=== PATIENT | female | born 1990 | race Caucasian/White ===

== ENCOUNTER 2017-07-28 15:36 | Emergency (ER) | payer MEDICAID ==
[~2017-07-28] VITALS: Ht 162.6 cm; Wt 59.1 kg
[~2017-07-28 15:36] MED LIST: IBUPROFEN600 MG PO; PERCOCET 5-3251 TAB PO; PRENATAL COMPLE1 TAB PO
[2017-07-28 16:02] VITALS: Ht 162.6 cm; Wt 59.1 kg
[2017-07-28] MEDS ORDERED: PHENERGAN25 M1 PO (16:04)
[2017-07-28 19:34] LABS: APPEARANCE CLEAR (CLEAR); BILIRUBIN NEGATIVE (NEGATIVE); COLOR YELLOW (YELLOW); GLUCOSE NEGATIVE (NEGATIVE); KETONE NEGATIVE (NEGATIVE); NITRITE NEGATIVE (NEGATIVE); PROTEIN NEGATIVE (NEGATIVE); UROBILINOGEN NORMAL (NORMAL)
[2017-07-28 19:35] LABS: BASOPHILS 0.3 % (0-2); EOSINOPHILS 1.2 % (0-7); HEMATOCRIT 37.4 % (36.0-48.0); HEMOGLOBIN 13.2 g/dL (12-16); IMMATURE GRANULOCYTES 0.2 % (0-5); LYMPHOCYTES 35.3 % (15-50); MCH 32.4 pg (26.0-34.0); MCHC 35.3 g/dL (31.0-37.0); MCV 91.7 fL (80.0-100.0); MEAN PLATELET VOLUME 10.1 fL (7.4-10.4); MONOCYTES 5.4 % (2-11); NEUTROPHILS 57.6 % (40-80); PLATELET COUNT 237 10x3/uL (130-400); RBC 4.08 10x6/uL (4.00-5.40); RDW 12.1 % (11.5-14.5); WBC 9.3 10x3/uL (4.8-10.8)
[2017-07-28 19:57] LABS: ALBUMIN 3.6 g/dL (3.4-5.0); ALKALINE PHOSPHATASE 61 U/L (46-116); ALT (SGPT) 76 U/L (10-68); BILIRUBIN - TOTAL 0.28 mg/dL (0.2-1.3); CALC OSMOLALITY 266 mosm/kg (275-300); CARBON DIOXIDE 22.9 mmol/L (21.0-32.0); CHLORIDE - SERUM 101 mmol/L (98-107); CREATININE - SERUM 0.6 mg/dL (0.6-1.3); GLUCOSE 80 mg/dL (74-106); POTASSIUM - SERUM 3.4 mmol/L (3.5-5.1); PROTEIN - SERUM 7.1 g/dL (6.4-8.2); SODIUM 135 mmol/L (136-145); UREA NITROGEN 7 mg/dL (7-18); eGFR NON AFRICAN AMERICAN > 90 mL/min (90-120)
[2017-07-28 20:21] LABS: HCG - QUANTITATIVE (MATERNAL) 127010 mIU/mL
[2017-07-28] MEDS ORDERED: ZOFRAN8 MG PO (21:51)
[2017-07-28 22:04] VITALS: BP 115/77
== END 2017-07-28 22:04 | disposition home or self-care (01) ==
LOC: D.ER 15:36
PROVIDERS: Family Medicine
DX: O26.891 Other specified pregnancy related conditions, first trimester (principal); Z3A.10 10 weeks gestation of pregnancy; E86.0 Dehydration; R73.9 Hyperglycemia, unspecified

== ENCOUNTER 2018-02-15 17:27 | Inpatient (IN) | payer MEDICAID ==
[~2018-02-15] VITALS: Ht 162.6 cm; Wt 79.4 kg
[~2018-02-15 17:27] MED LIST changes: +PHENERGAN25 M1 PO; +ZOFRAN8 MG PO
[2018-02-15 18:31] VITALS: BP 112/71; Ht 162.6 cm; Wt 79.4 kg
[2018-02-15 19:14] LABS: HEMATOCRIT 35.1 % (36.0-48.0); HEMOGLOBIN 12.2 g/dL (12-16); MCH 32.4 pg (26.0-34.0); MCHC 34.8 g/dL (31.0-37.0); MCV 93.1 fL (80.0-100.0); MEAN PLATELET VOLUME 10.8 fL (7.4-10.4); RBC 3.77 10x6/uL (4.00-5.40); RDW 12.9 % (11.5-14.5); WBC 10.7 10x3/uL (4.8-10.8)
[2018-02-15 19:22] LABS: UDS - AMPHET NEGATIVE QUAL (NEGATIVE); UDS - BARB NEGATIVE QUAL (NEGATIVE); UDS - BENZO NEGATIVE QUAL (NEGATIVE); UDS - COCAINE NEGATIVE QUAL (NEGATIVE); UDS - OPIATE NEGATIVE QUAL (NEGATIVE); UDS - PCP NEGATIVE QUAL (NEGATIVE); UDS - THC NEGATIVE QUAL (NEGATIVE)
[2018-02-16 07:25] LABS: ALBUMIN 2.2 g/dL (3.4-5.0); ALKALINE PHOSPHATASE 141 U/L (46-116); ALT (SGPT) 62 U/L (10-68); BILIRUBIN - TOTAL 0.32 mg/dL (0.2-1.3); CALC OSMOLALITY 275 mosm/kg (275-300); CALCIUM 8.1 mg/dL (8.5-10.1); CARBON DIOXIDE 19.8 mmol/L (21.0-32.0); CHLORIDE - SERUM 104 mmol/L (98-107); CREATININE - SERUM 0.6 mg/dL (0.6-1.3); GLUCOSE 85 mg/dL (74-106); LDH 145 U/L (81-234); POTASSIUM - SERUM 3.9 mmol/L (3.5-5.1); PROTEIN - SERUM 5.4 g/dL (6.4-8.2); SODIUM 139 mmol/L (136-145); UREA NITROGEN 11 mg/dL (7-18); URIC ACID 4.7 mg/dL (2.6-7.2); eGFR NON AFRICAN AMERICAN > 90 mL/min (90-120)
[2018-02-16 07:46] LABS: CREATININE - URINE 115.1 mg/dL (30-125); PRO/CRE RATIO URINE 0.2 mg/g; PROTEIN - URINE 17.7 mg/dL (0.0-11.9)
--- NOTE | 2018-02-16 16:35 | NUR ---
DR LESLIE NOTIFIED VIA PHONE OF PT'S BP'S OF 148/76 LEFT ARM AND 149/86 RIGHT ARM. NO NEW ORDERS RECEIVED.
[2018-02-16 19:25] VITALS: BP 117/78
--- NOTE | 2018-02-16 19:25 | NUR ---
PT ASSESSMENT COMPLETED. VSS, AFEBRILE, RESP EVEN AND UNLABORED, LUNGS CTAB, HEART RRR, ABD SOFT NONTENDER, FUNDUS FIRM AT U/1 AND MIDLINE, LOCHIA RUBRA MODERATE AMOUNT DENIES CLOTS, REPORTS VOIDING WITHOUT DIFFICULTY, USING BETADINE/WATER PERIWASH POST VOID PER REPORT, NO BM, REPORTS PASSING FLATUS, USING TUCKS/DERMAPLAST FOR PERINEAL/LABIAL DISCOMFORT, WILSON FREELY, NEGATIVE KRISTINA'S SIGN B LE, PEDAL PULSES STRONG/=/+2 B. INFANT NOW IN ARMS. NAD NOTED, CALL LIGHT IN EASY REACH, CONTINUE TO MONITOR. REVIEWED PLAN OF CARE FOR PM, PT STATES UNDERSTANDING.
--- NOTE | 2018-02-16 19:30 | NUR ---
TRANSFERRED PT TO ROOM 1257-A, AMBULATORY IN HALLS WITH INFANT AND PERSONAL BELONGINGS, NAD NOTED. ROOM/UNIT/TV ORIENTATION COMPLETED. REQUESTS [facility] [place] [facility] [place] AND SAME PROVIDED. ADDITIONAL LINENS AND GOWN PROVIDED FOR PT SHOWER LATER AT PT CONVENIENCE. CALL LIGHT IN EASY REACH. CONTINUE TO MONITOR.
--- NOTE | 2018-02-16 20:25 | NUR ---
HS SNACK TRAY DELIVERED, PT DENIES ANY NEEDS OR CONCERNS AT THIS TIME. CALL LIGHT IN EASY REACH. CONTINUE TO MONITOR.
--- NOTE | 2018-02-16 21:40 | NUR ---
PT GIVEN AND INSTRUCTED ON USE OF SITZ BATH. PT STATES DOES NOT WANT TO USE SITZ BATH AT THIS TIME, STATES POSSIBLY WILL SHOWER THIS PM INSTEAD. QUESTIONS ANSWERED REGARDING USE OF SITZ BATH. IN ARMS AT THIS TIME. BONDING WELL, SIGNIFICANT OTHER ALSO IN ROOM WITH PT. CALL LIGHT IN EASY REACH, DENIES NEEDS AT PRESENT.
--- NOTE | 2018-02-16 22:50 | NUR ---
PAIN REASSESSMENT COMPLETED, PT SLEEPING, EYES CLOSED, RESP EVEN AND UNLABORED, NO PHYSICAL S/SX PAIN OBSERVED AT THIS TIME, CALL LIGHT IN EASY REACH, INFANT ALSO RESTING WITH EYES CLOSED IN ROLLING CRIB ADJACENT TO PT BED. CONTINUE TO MONITOR.
--- NOTE | 2018-02-16 23:45 | NUR ---
ROUNDS COMPLETED, PT RESTING WITH EYES CLOSED, RIGHT LATERAL POSITION ON ENTRY TO ROOM, NAD NOTED. CONTINUE TO MONITOR.
--- NOTE | 2018-02-17 00:16 | NUR ---
SCHEDULED IBUPROFEN ADMINISTERED WITH SIPS OF WATER, FRESH WATER AND CUP OF ICE PROVIDED UPON REQUEST, INFANT IN ARMS, NO OTHER NEEDS VOICED AT THIS TIME. STATES "THAT SHOWER REALLY HELPED ME TO FEEL BETTER." CONTINUE TO MONITOR.
[2018-02-17 00:36] VITALS: BP 93/50
--- NOTE | 2018-02-17 01:08 | NUR ---
PAIN REASSESSMENT COMPLETED, PT STATES "I AM DOING OKAY RIGHT NOW ON MY PAIN" WHEN ASKED TO GIVE A NUMER, PT STATES 1 OR 2. ASSISTED PT WITH SWADDLING INFANT UPON REQUEST, PT SMILING DENIES OR CONCERNS OR REQUESTS AT THIS TIME, RESP EVEN AND UNLABORED, CONTINUE TO MONITOR.
--- NOTE | 2018-02-17 03:15 | NUR ---
ROUNDS COMPLETED, PT ROUSES TO DOOR OPENING, DENIES NEEDS THEN PT CLOSES EYES. CONTINUE TO MONITOR.
--- NOTE | 2018-02-17 04:06 | NUR ---
SCHEDULED ACETOMINOPHEN ADMINISTERED WITH SIPS OF WATER, FRESH CUP OF WATER PROVIDED. PT REQUESTING SALINE LOCK REMOVAL-STATES "IT STARTED BLEEDING WHEN I BUMPED IT ACCIDENTALLY." IV CATH PARTIALLY DISLODGED TO RIGHT HAND, IV DC'D CATH TIP INTACT, PRESSURE DRESSING WITH GAUZE AND TAPE APPLIED TO SITE. PT DENIES OTHER NEEDS AT THIS TIME, TOLERATES PROCEDURE WELL. CONTINUE TO MONITOR. IN ARMS.
--- NOTE | 2018-02-17 05:05 | NUR ---
PAIN REASSESSMENT COMPLETED, PT RATES PAIN 0 AT THIS TIME. AMBULATORY IN ROOM WITH IN ARMS, NAD NOTED. CONTINUE TO MONITOR.
--- NOTE | 2018-02-17 06:54 | NUR ---
[place] PROVIDED UPON REQUEST, PT WITHOUT DIFFICULTY, DENIES OTHER NEEDS AT THIS TIME, CALL LIGHT IN EASY REACH. CONTINUE TO MONITOR.
[2018-02-17 07:09] LABS: BASOPHILS 0.2 % (0-2); EOSINOPHILS 1.9 % (0-7); HEMATOCRIT 31.2 % (36.0-48.0); HEMOGLOBIN 10.6 g/dL (12-16); IMMATURE GRANULOCYTES 0.7 % (0-5); LYMPHOCYTES 33.8 % (15-50); MCH 31.9 pg (26.0-34.0); MONOCYTES 5.1 % (2-11); NEUTROPHILS 58.3 % (40-80); PLATELET COUNT 174 10x3/uL (130-400); RBC 3.32 10x6/uL (4.00-5.40); WBC 8.6 10x3/uL (4.8-10.8)
[2018-02-17 08:00] VITALS: BP 119/69
--- NOTE | 2018-02-17 08:00 | NUR ---
VS OBTAINED AND ASSESSMENT PERFORMED. NB AT BEDSIDE. PT DENIES NEED FOR PAIN MEDS. PROVIDED WITH COFFEE PER REQUEST. DENIES NEED FOR ANY OTHER ITEMS AT THIS TIME. CALL LIGHT IN REACH. BED LOW. SR UPX2.
[2018-02-17 08:19] LABS: RAPID PLASMA REAGIN Non Reactive (Non Reactive)
--- NOTE | 2018-02-17 10:31 | NUR ---
Spoke with pt about Tdap and flu vaccine. Pt refuses flu vaccine but accepts Tdap vaccine. Discussed benefits and risks of flu vaccine. Pt continues to refuse.
--- NOTE | 2018-02-17 11:26 | NUR ---
PT REQUESTING PRN PAIN MED. SEE [facility]AR FOR PARTS EXPEDITER. DISCUSSED DISCHARGE TODAY. REPORTS IS IN NO NUGENT TO LEAVE QUICKLY. STATES S/O HAS TO GO HOME TO GET CARSEAT BEFORE THEY CAN LEAVE. NO OTHER NEEDS OR CONCERNS VOICED. C/L IN REACH. BED LOW. SR UPX2.
[2018-02-17] MEDS ORDERED: IBUPROFEN800 MG PO (11:51)
--- NOTE | 2018-02-17 12:20 | NUR ---
DC instructions, prescriptions, follow up appt info, and educational material given and explained to patient. Patient verbalized understanding to all. No questions or concerns voiced. More panties and pads provided per request. NB remains in room with pt. Reports s/o went to get carseat. C/L in reach. Bed low. SR upx2.
--- NOTE | 2018-02-17 13:14 | NUR ---
PT REPORTS SHE AND S/O ARE READY TO BE DISCHARGED. NB PLACED IN APPROPRIATE NB CARRIER. PT INTO WHEELCHAIR. BELONGINGS TAKEN OUT PER S/O. PT AND FAMILY ESCORTED OUT TO PRIVATE VEHICLE WITH RN AT SIDE. PT LEFT FACILITY IN STABLE CONDITION DENYING ANY OTHER NEEDS OR CONCERNS.
== END 2018-02-17 13:14 | disposition home or self-care (01) | DRG 806 ==
LOC: D.LDO 17:27 → D.LD 18:14
PROVIDERS: ADMIT Obstetrics & Gynecology
PROC: 10E0XZZ Delivery of Products of Conception, External Approach (ICD-10-PCS; principal; 2018-02-16)
PROC: 0HQ9XZZ Repair Perineum Skin, External Approach (ICD-10-PCS; 2018-02-16)
DX: O76 Abnormality in fetal heart rate and rhythm complicating labor and delivery (principal); O98.42 Viral hepatitis complicating childbirth; Z37.0 Single live birth; O36.5930 Maternal care for other known or suspected poor fetal growth, third trimester, not applicable or unspecified; Z3A.39 39 weeks gestation of pregnancy; B19.20 Unspecified viral hepatitis C without hepatic coma; O62.3 Precipitate labor; O70.0 First degree perineal laceration during delivery

== ENCOUNTER 2020-05-25 11:17 | Emergency (ER) | payer MEDICAID ==
[~2020-05-25] VITALS: Ht 162.6 cm; Wt 63.6 kg
[~2020-05-25 11:17] MED LIST changes: +IBUPROFEN800 MG PO
[2020-05-25 11:21] VITALS: Ht 162.6 cm; Wt 63.6 kg
[2020-05-25] MEDS ORDERED: DOXYCYCLINE HY100 M2 PO (11:22)
[2020-05-25] MEDS ORDERED: PREDNISONE20 MG PO (11:23)
[2020-05-25 11:54] LABS: UDS - AMPHET POSITIVE QUAL (NEGATIVE); UDS - BARB NEGATIVE QUAL (NEGATIVE); UDS - BENZO NEGATIVE QUAL (NEGATIVE); UDS - COCAINE NEGATIVE QUAL (NEGATIVE); UDS - OPIATE NEGATIVE QUAL (NEGATIVE); UDS - PCP NEGATIVE QUAL (NEGATIVE); UDS - THC POSITIVE QUAL (NEGATIVE)
[2020-05-25 11:59] LABS: BASOPHILS 0.6 % (0-2); EOSINOPHILS 0.7 % (0-7); HEMATOCRIT 44.1 % (36.0-48.0); HEMOGLOBIN 15.1 g/dL (12-16); IMMATURE GRANULOCYTES 0.4 % (0-5); LYMPHOCYTE ABS# 3.86 10x3/uL (1.18-3.74); LYMPHOCYTES 31.4 % (15-50); MCH 32.3 pg (26.0-34.0); MCHC 34.2 g/dL (31.0-37.0); MCV 94.4 fL (80.0-100.0); MEAN PLATELET VOLUME 9.4 fL (7.4-10.4); MONOCYTES 5.8 % (2-11); NEUTROPHIL ABS# 7.53 10x3/uL (1.56-6.13); NEUTROPHILS 61.1 % (40-80); RBC 4.67 10x6/uL (4.00-5.40); RDW 12.8 % (11.5-14.5); WBC 12.3 10x3/uL (4.8-10.8)
[2020-05-25 12:01] LABS: PLATELET COUNT 277 10x3/uL (130-400)
[2020-05-25 12:11] LABS: CALC OSMOLALITY 275 mosm/kg (275-300); CALCIUM 8.9 mg/dL (8.5-10.1); CARBON DIOXIDE 26.7 mmol/L (21.0-32.0); CHLORIDE - SERUM 102 mmol/L (98-107); CREATININE - SERUM 0.7 mg/dL (0.6-1.3); GLUCOSE 89 mg/dL (74-106); POTASSIUM - SERUM 3.5 mmol/L (3.5-5.1); SODIUM 138 mmol/L (136-145); UREA NITROGEN 14 mg/dL (7-18); eGFR NON AFRICAN AMERICAN > 90 mL/min (90-120)
[2020-05-25 12:15] LABS: ALBUMIN 4.3 g/dL (3.4-5.0); ALKALINE PHOSPHATASE 87 U/L (30-120); ALT (SGPT) 26 U/L (10-68); BILIRUBIN - TOTAL 0.44 mg/dL (0.2-1.3); PROTEIN - SERUM 7.9 g/dL (6.4-8.2)
[2020-05-25 12:18] LABS: HCG SERUM NEGATIVE (NEGATIVE)
[2020-05-25 12:34] LABS: BILIRUBIN NEGATIVE (NEGATIVE); KETONE NEGATIVE (NEGATIVE); NITRITE NEGATIVE (NEGATIVE); UROBILINOGEN NORMAL mg/dL (< 2)
[2020-05-25 12:35] LABS: BACTERIA FEW HPF (NONE SEEN); SQUAMOUS EPITHELIAL 0-5 HPF (0-4); WHITE CELLS - URINE OCC HPF (0-4)
[2020-05-25] MEDS ORDERED: VOLTAREN75 MG PO (13:23)
[2020-05-25] MEDS ORDERED: ALBUTEROL SULF8.5 GM INH (13:23)
[2020-05-25 14:30] VITALS: BP 119/80
== END 2020-05-25 14:30 | disposition home or self-care (01) ==
LOC: D.ER 11:17
PROVIDERS: Family Medicine
DX: J06.9 Acute upper respiratory infection, unspecified (principal); F19.10 Other psychoactive substance abuse, uncomplicated; R59.1 Generalized enlarged lymph nodes; Z72.0 Tobacco use